=== PATIENT | male | born 1945 | race Two or more races ===

== ENCOUNTER → 2018-06-04 | Outpatient (CLI) | payer OTHER | END | disposition home or self-care (01) | LOC: NUCLEAR 07:00 | DX: I20.0 Unstable angina (principal); E78.2 Mixed hyperlipidemia; I67.89 Other cerebrovascular disease | CPT/HCPCS: 78452; 93017; 93880; A9500 ==

== ENCOUNTER 2019-06-30 06:15 | Outpatient (CLI) | payer OTHER | END 2019-06-30 06:24 | disposition home or self-care (01) | LOC: LAB 06:15 | DX: M17.11 Unilateral primary osteoarthritis, right knee (principal) ==

== ENCOUNTER 2019-07-07 06:45 | Outpatient (CLI) | payer OTHER | END 2019-07-07 06:54 | disposition home or self-care (01) | LOC: EKG 06:45 | DX: M17.11 Unilateral primary osteoarthritis, right knee (principal); Z01.818 Encounter for other preprocedural examination ==

== ENCOUNTER 2023-03-29 07:55 | Outpatient (CLI) | payer OTHER | END 2023-03-29 07:58 | disposition home or self-care (01) | LOC: NUCLEAR 07:55 | PROVIDERS: ATTEND Specialist | DX: I73.9 Peripheral vascular disease, unspecified (principal) ==

== ENCOUNTER 2023-04-01 07:51 | Outpatient (CLI) | payer OTHER | END 2023-04-01 07:52 | disposition home or self-care (01) | LOC: NUCLEAR 07:51 | PROVIDERS: ATTEND Specialist | DX: I87.2 Venous insufficiency (chronic) (peripheral) (principal) ==

== ENCOUNTER 2025-03-29 12:35 | Outpatient (CLI) | payer OTHER | END 2025-03-29 12:42 | disposition home or self-care (01) | LOC: SONOGRAMA 12:35 | PROVIDERS: ATTEND Pathology Anatomic Pathology & Clinical Pathology | DX: C76.0 Malignant neoplasm of head, face and neck (principal); R59.0 Localized enlarged lymph nodes ==